=== PATIENT | male | born 2000 | race Caucasian/White ===

== ENCOUNTER 2022-03-24 13:39 | Emergency (ER) | payer SELFPAY ==
[2022-03-24 13:41] VITALS: BP 164/90; PULSE 95; RESP 18; TEMP 37.1; O2SAT 99
--- NOTE | 2022-03-24 13:46 | XR_ITS ---
WS: [id number] Left leg including the tibia and fibula, AP and lateral views 03/24/2022 Clinical Data: Chainsaw laceration to the leg Comparison: None. Findings: No fractures or dislocations are seen. The tibia and fibula are intact. The soft tissues are normal. No radiopaque foreign bodies are seen. XR/XR tibia fibula LT 2V [id number] Impression: Negative for fracture of the left leg.
--- NOTE | 2022-03-24 14:01 | ED_ITS ---
HPI - Wound/Laceration General: Chief Complaint: Wound/Laceration Stated Complaint: Left leg lac from chainsaw Time Seen by Provider: 03/24/22 13:45 History of Present Illness: Patient is a 22-year-old male comes to the ED with laceration to left lower leg. Injury occurred just prior to arrival. Patient was using a chain saw and it accidentally cut anterior aspect of mid lower leg. Patient was wearing some objective boots and pants which limited the injury. After he cut leg he immediately bandaged it up and came here to the ED. Denies any loss of sensation or function distally to injury. He does not want to take tetanus shot because of his pentecostalism believes. Associated symptoms: Denies chills, fever(s), nausea or vomiting Review of Systems Const: Denies: fever(s), chills or fatigue Eyes: Denies: change in vision or eye discomfort ENMT: Denies: throat pain, odynophagia, nasal discharge or nasal congestion Card: Denies: chest pain, palpitations, edema, swelling of feet/ankles, dyspnea on exertion or orthopnea Resp: Denies: dyspnea, productive cough or non-productive cough GI: Denies: abdominal pain, nausea, vomiting, diarrhea, constipation or hematochezia : Denies: flank pain, difficulty urinating, dysuria or hematuria Musc: Denies: neck pain, back pain or extremity swelling Skin/Breast: Reports: new lesions (Laceration to left lower leg); Denies: rash Neuro: Denies: headache(s), numbness in extremities or weakness in extremities [facility] ED PFSH: Medical History (Updated 03/25/22 @ 07:47 by LAURIE Larson) No pertinent family history Surgical History (Updated 03/25/22 @ 07:47 by LAURIE Larson) No pertinent past surgical history Physical Exam Const: COMMON NORMALS: no acute distress, patient oriented x3 and alert GENERAL APPEARANCE: cooperative and comfortable HENMT: COMMON NORMALS: normocephalic HEAD & SCALP: normocephalic MOUTH: Normal oral and palatal mucosa present THROAT: posterior oropharynx normal and uvula midline Neck/C-Spine: COMMON NORMALS: supple GENERAL: Yes normal visual inspection Resp: COMMON NORMALS: normal respiratory effort, No retractions, No use of accessory muscles and clear to auscultation bilaterally AUSCULTATION: clear to auscultation bilaterally Cardio: COMMON NORMALS: regular rate, regular rhythm, S1 normal heart sound present, S2 normal heart sound present, No gallops present (Cardio), No clicks present (Cardio), No murmurs present (Cardio) and Peripheral pulses 2+ throughout RATE: regular rate RHYTHM: regular rhythm HEART SOUNDS: S1 normal heart sound present and S2 normal heart sound present PERIPHERAL PULSES: Peripheral pulses 2+ throughout GI: COMMON NORMALS: Normal to inspection, nondistended, normoactive bowel sounds present, Soft to palpation, non-tender and no masses PALPATION: Yes Soft to palpation : COMMON NORMALS: Yes no CVA tenderness BLADDER/KIDNEY EXAM: Yes no CVA tenderness Back/Pelvis: COMMON NORMALS: no CVA tenderness Extremity: NARRATIVE EXTREMITY EXAM: Left lower leg?mid tib-fib?3 cm linear laceration. No active bleeding noted. laceration is superficial. He has full range of motion in foot and ankle distally. No change in sensation and neurovascular intact distally. Neuro: COMMON NORMALS: patient oriented x3 SENSORIUM/ORIENTATION: Yes alert GAIT: Yes Normal gait present Skin: GENERAL SKIN EXAM: dry skin Procedures Laceration Laceration 1: Site: lower extremity (left lower leg) Side (If applicable): left Size (cm): 3 Description: linear Depth: simple, single layer Local Anesthetic: lidocaine 1% and with epi Amount of anesthesia used (mL): 4 Pre-repair: irrigated extensively (With normal saline and beta iodine) Skin layer closed with: nylon Size (cm): 4-0 Number of sutures: 8 Technique: simple, interrupted Course Vital Signs: Vital signs: Vital Signs Temperature 98.8 F 03/24/22 13:41 Pulse Rate 95 03/24/22 13:41 Respiratory Rate 18 03/24/22 13:41 Blood Pressure 164/90 03/24/22 13:41 Pulse Oximetry 99 03/24/22 13:41 MDM - Wound/Laceration Medical Decision Making Patient is a 22-year-old male comes to the ED with laceration to left lower leg. It was a chain saw injury that occurred but patient was wearing protective gear so area was superficial. Left lower leg?mid tib-fib?3 cm linear laceration. No active bleeding noted. laceration is superficial. He has full range of motion in foot and ankle distally. No change in sensation and neurovascular intact distally. X-ray of left tib-fib showed no acute fractures or foreign body seen. Lidocaine 1% with epi was used as local and the nurse irrigated laceration site extensively with normal saline and beta iodine. 8 sutures were placed to close laceration site. See procedure note for details. Patient was discharged home with a prescription for cephalexin. He was instructed on how to care for laceration site and told to have sutures removed in the next 7 to 10 days. Patient understood agree with plan. Lab Data Radiology Impressions Tibia/Fibula X-Ray 03/24/22 13:46 Impression: Negative for fracture of the left leg. Discharge Plan Discharge Patient Disposition: Home Clinical Impression: Laceration of left lower leg Qualifiers: Encounter type: initial encounter Qualified Code(s): S81.812A - Laceration without foreign body, left lower leg, initial encounter Condition: Stable Prescriptions: New cephalexin 500 mg capsule 500 mg PO Q6H 4 Days Qty: 16 0RF Discharge Orders: Discharge ED (Routine); Ordered 03/24/22 Ordered By: Low Carr Discharge Diet: Regular Discharge Activity: Increase activity as tolerated Patient Instructions: Laceration (ED) Activity Restrictions/Additional Instructions: Take full course of antibiotics as prescribed. Keep laceration site clean and dry. Clean daily with soap and water and then apply thin layer of triple antibiotic ointment on it and cover with bandage. You can stop applying triple antibiotic ointment on laceration site after 2 to 3 days to let wound dry up and heal. Watch for signs of infection such as redness, warmth, increased tenderness and puslike drainage. If you see the signs of infection return to the ED, urgent care or PCP for reevaluation. call your PCP to schedule a follow- up appointment for reevaluation and suture removal in about 7- 10 days. Continue taking all home meds. Follow discharge plans as discussed. You can return to the ED if symptoms worsen. Coding Level of Care Code ED Patient Registration Specialist for Albert [facility] Exam Comprehensive
== END 2022-03-24 15:20 | disposition home or self-care (01) ==
PROVIDERS: Emergency Provider Physician Assistant
DX: S81.812A Laceration without foreign body, left lower leg, initial encounter (principal); W29.3XXA Contact with powered garden and outdoor hand tools and machinery, initial encounter
CPT/HCPCS: 12002; 73590; 99283